=== PATIENT | female | born 1990 | race Caucasian/White ===

== ENCOUNTER 2018-12-31 17:32 | Outpatient (CLI) | payer MEDICAID ==
[~2018-12-31] VITALS: Ht 154.9 cm; Wt 94.5 kg
[~2018-12-31 17:32] MED LIST: FERR134T PO; PREN-19 PO
[2018-12-31 21:00] VITALS: BP 129/72; PULSE 75; RESP 18
[2018-12-31] MEDS ORDERED: LACTATED RINGER'S 1,000 ML IV ONE (21:30)
[2018-12-31] MEDS ORDERED: LACTATED RINGER'S 1,000 ML IV SCH (21:30)
--- NOTE | 2019-01-01 01:56 | PN ---
Triage Information Date/Time Reason for visit: Hand numbness Weeks of Gestation 35 weeks and 1 day /Para -0-2-2 Diabetes: none Hypertention: none Objective Vital Signs Date Temp Pulse Resp B/P (MAP) Pulse Ox O2 O2 Flow FiO2 Time Delivery Rate 12/31/18 98.0 75 18 129/72 Room Air 21:00 (91) Intake and Output 12/31/18 12/31/18 01/01/19 1515:00 23:00 07:00 IntakeIntake Total 1000 ml 600 ml BalanceBalance 1000 ml 600 ml Heart Rate: 130's Contractions: < 5 Minutes Apart Results/Medications Result Diagram: 12/31/18213912/31/182139 Results 24 hrs Laboratory Tests Test 12/31/18 19:30 12/31/18 21:40 Urine Color YELLOW Urine Clarity SLIGHTLY CLOUDY A Urine pH 7.0 Urine Specific Roberts 1.013 Urine Ketones NEGATIVE Urine Nitrite NEGATIVE Urine Bilirubin NEGATIVE Urine Urobilinogen NEGATIVE Urine Leukocyte Esterase NEGATIVE Urine Microscopic RBC 1 Urine Microscopic WBC 1 Urine Squamous Epithelial Cells MODERATE Urine Mucus FEW A Urine Hemoglobin NEGATIVE Urine Glucose NEGATIVE Urine Total Protein NEGATIVE White Blood Count 10.0 Red Blood Count 4.20 Hemoglobin 12.1 Hematocrit 37.0 Mean Corpuscular Volume 88.1 Mean Corpuscular Hemoglobin 28.8 L Mean Corpuscular Hemoglobin Concent 32.7 Red Cell Distribution Width 13.7 Platelet Count 153 Mean Platelet Volume 14.1 H Immature Granulocytes % 0.400 Neutrophils % 67.7 Lymphocytes % 24.8 Monocytes % 6.3 Eosinophils % 0.7 Basophils % 0.1 Nucleated Red Blood Cells % 0.0 Immature Granulocytes # 0.040 H Neutrophils # 6.8 Lymphocytes # 2.5 Monocytes # 0.6 Eosinophils # 0.1 Basophils # 0.0 Nucleated Red Blood Cells # 0.0 Sodium Level 137 Potassium Level 3.8 Chloride Level 107 Carbon Dioxide Level 21 Anion Gap 9 Blood Urea Nitrogen 9 Creatinine 0.44 Est Glomerular Filtrat Rate mL/min > 60 Glucose Level 79 Uric Acid 4.7 Calcium Level 9.3 Total Bilirubin 0.5 Direct Bilirubin 0.00 Indirect Bilirubin 0.5 Aspartate Amino Transf (AST/SGOT) 31 Alanine Aminotransferase (ALT/SGPT) 22 Alkaline Phosphatase 91 Total Protein 6.5 Albumin 3.3 Globulin 3.20 Albumin/Globulin Ratio 1.03 Disposition: Discharge Assessment/Plan With a ROBERT of 02/04/2019 complaining of numbness of the hand and vaginal pressure. She has history of tooth previous delivery. She states good movement. She denies nausea, vomiting, shortness of breath, chest pain, headache, visual changes, vaginal bleeding or LOF. -FHR: No sign of metabolic acidosis- Category I -Contractions: Initially she had contraction every 2-5 minutes which resolved with p.o. fluid -SVE: Closed/thick/high/ceph/intact -Ultrasound performed: Normal BAKARI, BPP 8 out of 8 -Pressure of median nerve due to swelling discussed in detail with patient. She expressed understanding. -Symptoms and sign of labor, preeclampsia, kick count discussed with patient, she voiced understanding. All of her questions answered. -Patient was discharged home in stable condition with the appropriate discharge instructions provided. I would like patient to have close follow-up with her primary physician or outpatient clinic in 1-2 days or return to triage for worsening symptoms or any other urgent concerns. BENJAMIN BURROWS Jan 01, 2019 01:56
--- NOTE | 2019-01-01 03:53 | TRIAGE ---
OB Triage Datetime Report Generated by CPN: 01/01/2019 03:53 Datetime: 01/01/2019 00:19 Stage of : OB Triage Datetime: 12/31/2018 23:08 Stage of : OB Triage Heart Rate FHR Baseline Rate: 125 Monitor Mode: External US FHR Baseline Changes: No Baseline Change Variability: Moderate 6-25 bpm Accelerations: 15X15 Decelerations: None Category: Category I Datetime: 12/31/2018 22:01 Labor Evaluation Frequency: 2-8 Monitor Mode: External Quality: Mild Pattern: Normal: <= 5 Contractions in 10 Minutes Resting Tone Ashton: Relaxed Datetime: 12/31/2018 21:04 Stage of : OB Triage Heart Rate FHR Baseline Rate: 120 Monitor Mode: External US FHR Baseline Changes: No Baseline Change Variability: Moderate 6-25 bpm Accelerations: 15X15 Decelerations: None Category: Category I Datetime: 12/31/2018 20:25 Stage of : OB Triage Labor Evaluation Frequency: 2-+8 Monitor Mode: External Duration (sec)2399: 40-60 Quality: Mild Pattern: Normal: <= 5 Contractions in 10 Minutes Resting Tone Ashton: Relaxed Heart Rate FHR Baseline Rate: 125 Monitor Mode: External US FHR Baseline Changes: No Baseline Change Variability: Moderate 6-25 bpm Accelerations: 15X15 Decelerations: None Category: Category I Vaginal Exam Dilatation (cms): 0.0 Effacement (%): 20 Station: -3 Exam By: E Ann Membrane Status: Intact Vaginal Bleeding: None Cervix, Consistency: Firm Cervix, Position: Posterior Datetime: 12/31/2018 19:57 Stage of : OB Triage Maternal Assessment Level of Consciousness: Keenly Alert, Responsive Headache: Denies Blurred Vision: No Nausea/Vomiting: Denies RUQ Epigastric Pain: Denies Facial Edema: None Monitor Mode: External Resting Tone Ashton: Relaxed Heart Rate FHR Baseline Rate: 150 Monitor Mode: External US Pain Assessment Pain Scale: 3 Pain Presence: Intermittent Pain Type: Contraction Pain Location: Abdomen Datetime: 12/31/2018 19:51 EGA: 35.0 Datetime: 12/31/2018 19:30 Time of Arrival: 12/31/2018 17:15 Arrived By: Ambulatory Arrived From: Home Chief Complaint: w/ hx c/s x2 c/o vag pressure x 1 wk and numbness in both hands x1 wk Movement: Present Contractions: Denies/Absent Rupture of Membranes: Denies Vaginal Bleeding: None Vaginal Discharge: Denies Recent Sexual Intercouse: Denies Abdominal Trauma: Not Applicable Patient Complaints: Upper Extremity Edema; Other Time Provider Notified: 12/31/2018 20:25 Provider Notified: Dr Lambert Initial Plan: UA, SVE, iv HYDRATION
== END 2019-01-01 00:40 | disposition home or self-care (01) ==
LOC: OBT 17:32 → L-D 17:33 → OBT 01-01 00:40
PROVIDERS: ATTEND Obstetrics & Gynecology
DX: O26.893 Other specified pregnancy related conditions, third trimester (principal); R20.0 Anesthesia of skin; Z3A.35 35 weeks gestation of pregnancy
CPT/HCPCS: 76818; 80053; 81001; 84560; 85025; 96360; 96361; J7120; Z7500; 81003; G0463

== ENCOUNTER 2019-01-14 17:43 | Inpatient (IN) | payer MEDICAID ==
[~2019-01-14] VITALS: Ht 157.5 cm; Wt 98.2 kg
[2019-01-14 17:51] VITALS: Ht 157.5 cm; Wt 98.2 kg
[2019-01-14] MEDS ORDERED: LACTATED RINGER'S 1,000 ML IV SCH (19:50)
[2019-01-14] MEDS ORDERED: METHYLERGONOVINE 0.2 MG INJ IM PRN (20:00)
[2019-01-14] MEDS ORDERED: AZITHROMYCIN 500MG/NS (PMX) 250 ML IV SCH (20:00)
[2019-01-14] MEDS ORDERED: OXYTOCIN 30 UNITS/LR 500 ML IV PRN (20:00)
[2019-01-14] MEDS ORDERED: AMPICILLIN 2 GM/NS (PMX) 100 ML IV SCH (20:00)
[2019-01-14] MEDS ORDERED: LACTATED RINGER'S 1,000 ML IV ONE (20:00)
[2019-01-14] MEDS ORDERED: OXYTOCIN 30 UNITS/LR 500 ML IV SCH (20:00)
[2019-01-14] MEDS ORDERED: MISOPROSTOL 200 MCG TAB PR PRN (20:00)
[2019-01-14] MEDS ORDERED: CEFAZOLIN 2 GM/50 ML (PMX) 50 ML IVPB SCH (20:00)
[2019-01-14] MEDS ORDERED: CARBOPROST 250 MCG INJ IM PRN (20:00)
--- NOTE | 2019-01-14 21:13 | HP ---
Date/Time of Note Date/Time of Note DATE: 01/14/19 TIME: 21:06 OB - History Hx of Present Chief Complaint: contractions and elevated BP in clinic Estimated Due Date: Feb 04, 2019 : 5 Para: 2 Spontaneous : 2 Therapeutic : 0 Care: Good Care Ultrasounds: Normal mid trimester US Obstetrical Complications: None Medical Complications: None Past Family/Social History * Past Medical, Surgical, Family and Obstetric Histories reviewed from ch art. GBS Status: Positive OB Admission Exam Physical Exam HEENT: WNL Heart: Rhythm Normal Lungs: Clear, Equal Abdomen: WNL Extremities: Normal Reflexes: Normal Cervical Dilatation: None Effacement: 50% Station: -1 Membranes: Intact Heart Rate: 120's Accelerations: Accelerations Present Decelerations: No Decelerations Varibility: Moderate Contractions on Admission: < 5 Minutes Apart Last 72 hours Lab Results CBC & BMP 01/14/19 18:16 Liver Function Test 01/14/19 18:16 Alanine Aminotransferase (ALT/SGPT) 29 Albumin 3.4 Alkaline Phosphatase 91 Aspartate Amino Transf (AST/SGOT) 31 Direct Bilirubin 0.00 Total Protein 6.3 OB Assessment/Plan Reason for admission: section, other Other Assessment: voluntary sterilization Plan: Section, Other Other plan: Bilateral tubal ligation ADRIAN RAM MD Jan 14, 2019 21:13
[2019-01-14] MEDS ORDERED: morphine SULFATE/PF (10 MG/10 ML) INJ ONE (21:52)
[2019-01-14] MEDS ORDERED: FENTAnyl 50 MCG/ML VIAL ONE (21:52)
[2019-01-14] MEDS ORDERED: CEFAZOLIN 1 GM INJ ONE (22:00)
[2019-01-14] MEDS ORDERED: DEXAMETHASONE 4 MG/ML 1 ML INJ ONE (22:03)
[2019-01-14] MEDS ORDERED: ONDANSETRON 4 MG INJ ONE (22:03)
[2019-01-14] MEDS ORDERED: MIDAZOLAM 1 MG/ML 2 ML INJ ONE (22:32)
--- NOTE | 2019-01-14 22:45 | PREAC ---
Date/Time of Note Date/Time of Note DATE: 01/14/19 TIME: 22:43 Anesthesia Eval and Record Evaluation Time Pre-Procedure Interview DATE: 01/14/19 TIME: 22:43 Age 28 Sex female NPO: 8 hrs Preoperative diagnosis previous c section and vol sterilization Planned procedure c section Past Medical History Past Medical History: None Surgery & Anesthesia Issues No known issue Meds Anticoagulation: No Beta Nirav within 24 hr: No Reason Beta Nirav not given: Pt. not on B-Nirav Reported Medications Vit #76/Iron,Carb/FA (Prenatabs Rx Tablet) 1 Each Tablet, 1 EACH PO DAILY, TAB 12/31/18 Ferrous Sulfate (Iron) 134 Mg Tablet, 134 MG PO DAILY, TAB 12/31/18 Current Medications Lactated Ringer's 1,000 ml @ 125 mls/hr Q8H IV ; Start 01/14/19 at 19:50 Cefazolin Sodium/ Dextrose 50 ml @ 100 mls/hr ONCE IVPB ; Start 01/14/19 at 20:00 Oxytocin/Lactated Ringer's 500 ml @ 125 mls/hr POST IV ; Start 01/14/19 at 20:00 Azithromycin 250 ml @ 250 mls/hr ONCE IV ; Start 01/14/19 at 20:00 Oxytocin/Lactated Ringer's 500 ml @ 0 mls/hr ONCE PRN IV .VAGINAL BLEEDING; Start 01/14/19 at 20:00 Methylergonovine Maleate (Methergine) 0.2 mg ONCE PRN IM .VAGINAL BLEEDING; Start 01/14/19 at 20:00 Carboprost Tromethamine (Hemabate) 250 mcg ONCE PRN IM .VAGINAL BLEEDING; Start 01/14/19 at 20:00 Misoprostol (Cytotec) 1,000 mcg ONCE PRN MO .VAGINAL BLEEDING; Start 01/14/19 at 20:00 Meds reviewed: Yes Allergies Coded Allergies: No Known Allergy (Verified , 01/14/19) Allergies Reviewed: Yes Labs/Studies Labs Reviewed: Reviewed by anesthesiologist Result Diagram: 01/14/19 1816 01/14/19 1816 Laboratory Tests 01/14/19 18:16 Blood Bank Test 01/14/19 18:16 Antibody Screen NEGATIVE Blood Type A POSITIVE Rh Immune Globulin Candidate NO test: N/A Pre-procedure Exam Airway: Adequate mouth opening, Adequate thyromental dist Mallampati: Mallampati III Teeth: Normal Lung: Normal Heart: Normal ASA Physical Status ASA physical status: 2 Emergency: None Pre-operative Attestations Prior to commencing anesthesia and surgery, the patient was re-evaluated, there was verification of: *The patient's identity *The results of appropriate recent lab work and preoperative vital signs *The above evaluation not changing prior to induction *Anesthetic plan, risk benefits, alternative and complications discussed with patient/family; questions answered; patient/family understands, accepts and wishes to proceed. ELEAZAR CURTIS DO Jan 14, 2019 22:44
[2019-01-14] MEDS ORDERED: NALOXONE (0.4 MG/ML) INJ IV PRN (23:00)
[2019-01-14] MEDS ORDERED: ONDANSETRON 4 MG INJ IV PRN (23:00)
[2019-01-14] MEDS ORDERED: KETOROLAC 30 MG INJ IV PRN (23:00)
[2019-01-14] MEDS ORDERED: HYDROmorphONE 0.5 MG/0.5 ML SYG IV PRN (23:00)
[2019-01-14] MEDS ORDERED: DIPHENHYDRAMINE 50 MG INJ IV PRN (23:00)
[2019-01-14] MEDS ORDERED: ZOLPIDEM 5 MG TAB PO PRN (23:00)
[2019-01-14] MEDS ORDERED: DIPHENHYDRAMINE 50 MG INJ ONE (23:14)
--- NOTE | 2019-01-14 23:30 | OPPN ---
Date/Time of Note Date/Time of Note DATE: 01/14/19 TIME: 23:27 Operative Report Planned Procedure Procedure date Jan 14, 2019 Procedure(s) Repeat c/s, lysis of adhesions and BTL Performed by Adrian Ram MD Pace Analyst: AAMIR YEE MD 2nd Pace Analyst none Anesthesiologist: ELEAZAR CURTIS DO Pre-procedure diagnosis 37 weeks, previous c/s, contractions and voluntary sterilization [id number] Anesthesia Type: [id number] spinal Post-Procedure Post-procedure diagnosis Same, pelvic adhesions Findings Live Baby [], Apgars [] and [], weight [], position [], [] presentation []cord. Estimated Blood Loss: other (500 ml) Specimen(s) Placenta and Fallopian tubes Grafts/Implant(s) none Complication(s) none ADRIAN RAM MD Jan 14, 2019 23:30
[2019-01-15] VITALS (9 sets, daily range): BP systolic 102–141; BP diastolic 59–89; PULSE 77–82; RESP 17–19
--- NOTE | 2019-01-15 00:38 | TRIAGE ---
OB Triage Datetime Report Generated by CPN: 01/15/2019 00:37 Datetime: 01/14/2019 20:16 Assessment Type: Admission Assessment Maternal Assessment Level of Consciousness: Keenly Alert, Responsive DTR's/Clonus: DTRs 2+; No Clonus Headache: Denies Blurred Vision: No Respiratory Effort: Unlabored; Regular Rhythm; Equal Expansion Breath Sounds, Left: Clear and Equal Breath Sounds, Right: Clear and Equal Nausea/Vomiting: Denies RUQ Epigastric Pain: Denies Facial Edema: None Fall Risk Assessment History of Falling: (0) No Secondary Diagnosis: (0) No Ambulatory Aid: (0) Bedrest/Nurse Assist IV Therapy: (0) No Gait: (0) Normal/Bedrest/Immobile Mental Status: (0) Oriented to Own Ability Fall Score: 0 Fall Risk Score Definition: No Risk: No action required Datetime: 01/14/2019 20:00 Stage of : OB Triage Labor Evaluation Frequency: 1.5-5.5 Monitor Mode: External Duration (sec)2399: 40-100 Quality: Mild Pattern: Normal: <= 5 Contractions in 10 Minutes Resting Tone Anton: Relaxed Heart Rate FHR Baseline Rate: 120 Monitor Mode: External US Variability: Moderate 6-25 bpm Accelerations: 15X15 Decelerations: Variable Category: Category II Datetime: 01/14/2019 19:46 Stage of : OB Triage Datetime: 01/14/2019 19:44 Vaginal Exam Dilatation (cms): 0.0 Exam By: Dr.Delshad Membrane Status: Intact Datetime: 01/14/2019 19:34 Assessment Type: Triage Maternal Assessment Level of Consciousness: Keenly Alert, Responsive DTR's/Clonus: DTRs 2+; No Clonus Headache: Denies Blurred Vision: No Respiratory Effort: Unlabored; Regular Rhythm; Equal Expansion Breath Sounds, Left: Clear and Equal Breath Sounds, Right: Clear and Equal Nausea/Vomiting: Denies RUQ Epigastric Pain: Denies Lower Extremities Edema: Bilateral Lower Extremities Degree: Pitting (Annotations: more to right leg) Upper Extremities Edema: None Degree: None Facial Edema: None Temperature Route: Oral Fall Risk Assessment History of Falling: (0) No Secondary Diagnosis: (0) No Ambulatory Aid: (0) Bedrest/Nurse Assist IV Therapy: (0) No Gait: (0) Normal/Bedrest/Immobile Mental Status: (0) Oriented to Own Ability Fall Score: 0 Fall Risk Score Definition: No Risk: No action required Datetime: 01/14/2019 19:20 Stage of : OB Triage Datetime: 01/14/2019 19:17 Stage of : OB Triage Datetime: 01/14/2019 19:00 Maternal Assessment Level of Consciousness: Keenly Alert, Responsive DTR's/Clonus: DTRs 1+ Headache: Denies Blurred Vision: No Respiratory Effort: Unlabored Breath Sounds, Left: Clear and Equal Breath Sounds, Right: Clear and Equal Nausea/Vomiting: Denies RUQ Epigastric Pain: Denies Facial Edema: None Monitor Mode: External Resting Tone Anton: Relaxed Heart Rate FHR Baseline Rate: 135 Monitor Mode: External US Variability: Marked >25 bpm Decelerations: None Category: Category I Pain Assessment Pain Scale: 0 Pain Presence: None/Denies Pain Type: N/A Pain Goal: 3 Membrane Status: Intact Datetime: 01/14/2019 18:46 Stage of : OB Triage Maternal Assessment Level of Consciousness: Keenly Alert, Responsive DTR's/Clonus: DTRs 1+ Headache: Denies Blurred Vision: No Respiratory Effort: Unlabored Breath Sounds, Left: Clear and Equal Breath Sounds, Right: Clear and Equal Nausea/Vomiting: Denies RUQ Epigastric Pain: Denies Facial Edema: None Labor Evaluation Frequency: 12-13 Monitor Mode: External Duration (sec)2399: 50-70 Quality: Mild Pattern: Normal: <= 5 Contractions in 10 Minutes Resting Tone Anton: Relaxed Heart Rate FHR Baseline Rate: 135 Monitor Mode: External US Variability: Moderate 6-25 bpm Accelerations: 15X15 Decelerations: None Category: Category I Pain Assessment Pain Scale: 0 Pain Presence: None/Denies Pain Type: N/A Pain Goal: 0 Membrane Status: Intact Datetime: 01/14/2019 17:58 Stage of : OB Triage Maternal Assessment Level of Consciousness: Keenly Alert, Responsive DTR's/Clonus: DTRs 1+ Headache: Denies Blurred Vision: No Nausea/Vomiting: Denies RUQ Epigastric Pain: Denies Facial Edema: None Monitor Mode: External Resting Tone Anton: Relaxed Heart Rate FHR Baseline Rate: 125 Monitor Mode: External US Variability: Moderate 6-25 bpm Accelerations: 15X15 Decelerations: None Category: Category I Pain Assessment Pain Scale: 7 Pain Presence: Constant Pain Type: Sharp Pain Location: Abdomen Pain Goal: 3 Membrane Status: Intact Datetime: 01/14/2019 17:55 Stage of : OB Triage Datetime: 01/14/2019 17:53 Assessment Type: Triage Maternal Assessment Level of Consciousness: Keenly Alert, Responsive DTR's/Clonus: DTRs 2+; No Clonus Headache: Denies Blurred Vision: No Respiratory Effort: Unlabored; Regular Rhythm; Equal Expansion Breath Sounds, Left: Clear and Equal Breath Sounds, Right: Clear and Equal Nausea/Vomiting: Denies RUQ Epigastric Pain: Denies Lower Extremities Edema: None Degree: None Upper Extremities Edema: None Degree: None Facial Edema: None Fall Risk Assessment History of Falling: (0) No Secondary Diagnosis: (0) No Ambulatory Aid: (0) Bedrest/Nurse Assist IV Therapy: (0) No Gait: (0) Normal/Bedrest/Immobile Mental Status: (0) Oriented to Own Ability Fall Score: 0 Fall Risk Score Definition: No Risk: No action required Membranes Ruptured Date/Time: 01/14/2019 22:23 Membranes Rupture Method: Artificial Amniotic Fluid Color: Clear Amniotic Fluid Amount: Moderate Amniotic Fluid Odor: None Presentation 'A': Cephalic Datetime: 01/14/2019 17:30 Time of Arrival: 01/14/2019 17:30 EGA: 37.0 Arrived By: Ambulatory Arrived From: Office Chief Complaint: PT CAME IN FROM [facility] OFFICE DUE TO HIGH BLOOD PRESSURES. PT DENIES ANY S/S OF PRE-E CLAMPSIA AT THIS TIME Movement: Present Contractions: Denies/Absent Rupture of Membranes: Denies Vaginal Bleeding: None Vaginal Discharge: Denies Recent Sexual Intercouse: Denies Abdominal Trauma: Not Applicable Patient Complaints: None Additional Patient Complaints: NONE Time Provider Notified: 01/14/2019 19:20 Provider Notified: Initial Plan: [facility] PANEL, BPP, EFW Datetime: 12/31/2018 19:51 EGA: 35.0
--- NOTE | 2019-01-15 02:08 | OPR ---
DATE OF OPERATION: 01/14/2019 PREOPERATIVE DIAGNOSES: 1. at 37 weeks. 2. Previous section x2, contractions and voluntary sterilization. POSTOPERATIVE DIAGNOSES: 1. at 37 weeks. 2. Previous x2, contractions and voluntary sterilization. 3. Pelvic adhesions. OPERATION: Repeat low transverse section, lysis of adhesions and bilateral tubal ligation. SURGEON: Adrian Lambert MD SOLAR POWER INSTALLER: Karen López MD ANESTHESIA: Spinal. ANESTHESIOLOGIST: Dr. Garces. PROCEDURE: The patient was taken to operating room, placed on the operating table. After successful spinal anesthesia was given, the patient was placed in supine position. The area was prepared and d raped in the usual sterile fashion. Spinal anesthesia was tested and was satisfactory. Using a scal pel, Pfannenstiel incision was made about 2 fingerbreadths above the symphysis pubis. The incision w as carried to fascia. The fascia was incised and extended bilaterally with [place] scissors. Two Koche r's were used to separate the fascia from the muscle. Muscle was dissected down to peritoneum. The peritoneum was secured using Kellys and incised with Metzenbaum scissors. Using a scalpel, a small t ransverse incision was made in the lower segment of uterus. Upon entering the uterine cavity, bandag e scissors were inserted to extend the incision bilaterally, curved up. Baby was delivered from cep alic presentation. After suctioning clear of amniotic fluid, the baby was handed off to the team in attendance. Apgars were 8 and 9. Placenta was delivered without difficulty. Uterus was cl osed with #1 Monocryl continuous locked. After assuring hemostasis, both ovaries and tubes. The tub es on both ovaries and tubes were inspected, all looked normal. In order to perform bilateral tubal ligation, sharp lysis of adhesion was performed. Using [place] clamp, the right fallopian tube was g rasped in its midportion. Using 0 plain suture ligature, a 5 cm segment of the right fallopian tube was doubly ligated. Using Metzenbaum scissors, a portion of the right fallopian tube above the ligat ed area was excised and sent to pathology. Same procedure was repeated on left fallopian tube. Afte r assuring hemostasis, the peritoneum was closed with 2-0 Vicryl continuous. Fascia was closed with #1 Vicryl continuous in 2 segments. Subcutaneous tissue was reapproximated with 2-0 plain. The skin was closed with magalie. ESTIMATED BLOOD LOSS: 500 mL. COUNTS: All counts were correct. Dictated By: ADRIAN LAMBERT MD GD/SMITHA Conf#: [id number] DID#: [id number] CC: Dr. Garces; ADRIAN LAMBERT MD;*EndCC*
[2019-01-15] MEDS ORDERED: OXYTOCIN 30 UNITS/LR 500 ML IV SCH (02:22)
[2019-01-15] MEDS ORDERED: LACTATED RINGER'S 1,000 ML IV SCH (02:22)
[2019-01-15] MEDS ORDERED: LANOLIN HPA 1 PKT TOP PRN (02:30)
[2019-01-15] MEDS ORDERED: OXYCODONE/ACETAMINOPHEN (5/325) TAB PO PRN ×2 (02:30)
[2019-01-15] MEDS ORDERED: METHYLERGONOVINE 0.2 MG INJ IM PRN (02:30)
[2019-01-15] MEDS ORDERED: MISOPROSTOL 200 MCG TAB PR PRN (02:30)
[2019-01-15] MEDS ORDERED: CARBOPROST 250 MCG INJ IM PRN (02:30)
[2019-01-15] MEDS ORDERED: OXYTOCIN 30 UNITS/LR 500 ML IV PRN (02:30)
--- NOTE | 2019-01-15 03:20 | PAC ---
Date/Time of Note Date/Time of Note DATE: 01/15/19 TIME: 03:19 Post-Anesthesia Notes Post-Anesthesia Note Activity: WNL Respiratory function: WNL Cardiovascular function: WNL Mental status: Baseline Pain reasonably controlled: Yes Hydration appropriate: Yes Nausea/Vomiting absent: Yes ELEAZAR CURTIS DO Jan 15, 2019 03:20
[2019-01-15] MEDS: SENNA/DOCUSATE NA (8.6MG/50MG) TAB PO SCH ×2 (08:55→20:28)
[2019-01-15] MEDS: LACTATED RINGER'S 1,000 ML IV SCH ×2 (10:48→16:54)
--- NOTE | 2019-01-15 19:33 | QN ---
Documentation Comment No complaint Afebrile VSS Abdomen soft ND POD #1 Stable ambulate Advance diet. ADRIAN RAM MD Jan 15, 2019 19:33
[2019-01-16] VITALS: BP 100/83; PULSE 71; RESP 20
--- NOTE | 2019-01-16 03:13 | DELSUM ---
Delivery Summary A-C Datetime Report Generated by CPN: 01/16/2019 03:13 DELIVERY PERSONNEL Promotional Marketing Analyst: [place], [place] MATERNAL INFORMATION Delivery Anesthesia: Spinal Medications in Delivery: 30U PTOCIN WITH LR Delivery QBL (ml): 500 Placenta Cultured: No Maternal Complications: None LABOR SUMMARY EDC: 02/04/2019 00:00 No. Babies in Womb: 1 Attempted: No Labor Anesthesia: Intrathecal LABOR INFORMATION Reason for Induction: Not Applicable Group B Beta Strep: Positive Antibiotics # of Doses: 3-amp, ancef, zithromax Antibiotics Time of Last Dose: 01/14/2019 22:10 Steroids Given: None Reason Steroids Not Administered: Not Applicable MEMBRANES Membranes Rupture Method: Artificial Rupture of Membranes: 01/14/2019 22:23 Length of Rupture (hr): 0.12 Amniotic Fluid Color: Clear Amniotic Fluid Amount: Moderate Amniotic Fluid Odor: None STAGES OF LABOR Stage 3 hr: 0 Stage 3 min: 1 VAGINAL DELIVERY Episiotomy: None Laceration Extension: N/A Laceration Type: None CSECTION DELIVERY Primary Indication: Repeat Elective CSection Urgency: Elective CSection Incidence: Repeat Labor: Labor Elective: Elective CSection Incision: Lower Uterine Transverse Sterilization Procedure: Center BABY A INFORMATION Delivery Date/Time: 01/14/2019 22:30 Method of Delivery: Born in Route : No : N/A Forceps: N/A Vacuum Extraction: N/A Shoulder Dystocia : N/A SHOULDER DYSTOCIA BABY A Delivery Date/Time: 01/14/2019 22:30 PRESENTATION/POSITION BABY A Presentation: Cephalic Cephalic Presentation: Vertex Vertex Position: Right Occipital Anterior Breech Presentation: N/A PLACENTA INFORMATION BABY A Placenta Delivery Time : 01/14/2019 22:31 Placenta Method of Delivery: Manual Removal Placenta Status: Delivered SCORES BABY A Heart Rate 1 min: >100 bpm Resp Effort 1 min: Good Cry Reflex Irritability 1 min: Cough/Sneeze/Pulls Away Muscle Tone 1 min: Active Motion Color 1 min: Blue/Pale Resuscitation Effort 1 min: Tactile Stimulation; Oxygen SCORE 1 MIN: 8 Heart Rate 5 min: >100 bpm Resp Effort 5 min: Good Cry Reflex Irritability 5 min: Cough/Sneeze/Pulls Away Muscle Tone 5 min: Active Motion Color 5 min: Body [place], Extremit Blue Resuscitation Effort 5 min: Tactile Stimulation SCORE 5 MIN: 9 INFANT INFORMATION BABY A Gestational Age at Delivery: 37.0 Gestational Status: Early Term- 37- 38.6 Weeks Infant Outcome : Liveborn, with signs of life Condition : Stable Sex: Male IDENTIFICATION/MEDS BABY A ID Band Number: [id number] ID Band Location: Right Leg; Left Arm Sensor Applied: Yes Sensor Number: [id number] Sensor Location : Cord Clamp Vitamin K Given : Not Given Erythromycin Given: Not Given WEIGHT/LENGTH BABY A Birthweight (gm): 3150 Weight (lb): 6 Infant Weight (oz): 15 Infant Length (in): 19.00 Length (cm): 48.26 CORD INFORMATION BABY A No. Cord Vessels: 3 Nuchal Cord : Around Neck x1, Tight Cord Blood Taken: Yes Infant Suction: Mouth; Nose
[2019-01-16 04:00] VITALS: BP 101/59; PULSE 71; RESP 20
[2019-01-16] MEDS: IBUPROFEN 800 MG TAB PO SCH ×3 (05:44→22:10)
[2019-01-16 08:00] VITALS: BP 117/67; PULSE 65; RESP 18
--- NOTE | 2019-01-16 08:26 | PAC ---
Date/Time of Note Date/Time of Note DATE: 01/16/19 TIME: 08:26 Post-Anesthesia Notes Post-Anesthesia Note Last documented vital signs Vital Signs Date Temp Pulse Resp B/P (MAP) Pulse Ox O2 O2 Flow FiO2 Time Delivery Rate 01/16/19 98.6 71 20 101/59 Room Air 04:00 (73) 01/15/19 96 19:30 Activity: WNL Respiratory function: WNL Cardiovascular function: WNL Mental status: Baseline Pain reasonably controlled: Yes Hydration appropriate: Yes Nausea/Vomiting absent: Yes ELEAZAR UCRTIS DO Jan 16, 2019 08:26
[2019-01-16] MEDS: SENNA/DOCUSATE NA (8.6MG/50MG) TAB PO SCH ×2 (09:33→22:10)
[2019-01-16 16:00] VITALS: BP 110/63; PULSE 78; RESP 18
--- NOTE | 2019-01-16 19:08 | DS ---
Date/Time of Note Date/Time of Note DATE: 01/16/19 TIME: 19:07 Obstetrical Discharge Record Final Diagnosis Final Diagnosis: Term delivered Section Section: Repeat Condition on Discharge Physical Assessment Voiding: Yes Bowel Movement: Yes Breast: Soft, non-tender, Filling Fundus: Firm Abdomen and Incision: Incision intact Calf Tenderness: No Patient Condition: Stable ADRIAN RAM MD Jan 16, 2019 19:08
[2019-01-16 19:50] VITALS: BP 121/79; PULSE 63; RESP 18
[2019-01-17 03:30] VITALS: BP 114/65; PULSE 67; RESP 18
[2019-01-17] MEDS: IBUPROFEN 800 MG TAB PO SCH ×2 (05:36→14:36)
[2019-01-17 07:45] VITALS: BP 121/68; PULSE 59; RESP 16
[2019-01-17] MEDS: SENNA/DOCUSATE NA (8.6MG/50MG) TAB PO SCH (08:18)
[2019-01-17] MEDS ORDERED: DIPHTH/TET/ACEL PERTUSS (ADULT) 0.5 ML VIAL IM* ONE (09:00)
== END 2019-01-17 18:36 | disposition home or self-care (01) | DRG 785 ==
LOC: OBT 17:43 → L-D 17:44 → OBT 19:46 → L-D 21:49 → MS1 01-15 02:14
PROVIDERS: ADMIT Obstetrics & Gynecology; ATTEND Obstetrics & Gynecology
PROC: 0UT70ZZ Resection of Bilateral Fallopian Tubes, Open Approach (ICD-10-PCS; 2019-01-14)
PROC: 10D00Z1 Extraction of Products of Conception, Low, Open Approach (ICD-10-PCS; principal; 2019-01-14 22:00)
DX: O65.5 Obstructed labor due to abnormality of maternal pelvic organs (principal); O34.211 Maternal care for low transverse scar from previous cesarean delivery; K66.0 Peritoneal adhesions (postprocedural) (postinfection); Z3A.37 37 weeks gestation of pregnancy; Z37.0 Single live birth; Z30.2 Encounter for sterilization
CPT/HCPCS: 76815; 76818; 80053; 81003; 84560; 85025; 85610; 85730; 86592; 86850; 86900; 86901; 88302; 90715; 99464; G0463; J0290; J0456; J0690; J1100; J1200; J1885; J2250; J2274; J2405; J2590; J3010; J7120